=== PATIENT | female | born 1950 | race Caucasian/White ===

== ENCOUNTER → 2017-04-10 | Outpatient (CLI) | payer OTHER, MEDICAID ==
[~2017-04-10] MED LIST: ACTOS45 MG; ALLOPURINOL300 MG PO; AMOXICILLIN500 MG PO; ASPIRIN81 M1; FEROSUL325 MG PO; FERROUS SULFAT325 MG; FOLIC ACID1 MG PO; FORTE-PLUS-241 CAP PO; FUROSEMIDE40 MG; GLYBURIDE AND M; HYDROCODONE BIT1 T11 PO; IBU800 M1 PO; JANUVIA100 MG PO; KLOR-CON M2020 MEQ PO; LABETALOL HCL200 MG; LIDEX0.05% T; LISINOPRIL/HCTZ1 TA4; LISINOPRIL/HCTZ1 TA4 PO; LISINOPRIL20 MG; LISINOPRIL40 MG PO; MEDROL DOSEPAK4 MG PO; MULTIVITAMIN1 CTB; NORCO 325 MG-51 TAB PO; NORVASC10 MG; PERCOCET 325 MG1 TA2 PO; PLAVIX75 MG; PLAVIX75 MG PO; PREDNICOT20 MG PO; SIMVASTATIN40 MG; TRANDATE200 MG PO; Tessalon Perle100 MG PO; Transderm Nitr0.6 MG TD; VICODIN ES 7501 TAB PO; ZESTRIL,PRINIVI40 MG PO; ZESTRIL40 MG PO
== END | disposition home or self-care (01) ==
LOC: RAD 11:00
DX: I51.7 Cardiomegaly (principal); J06.9 Acute upper respiratory infection, unspecified; I10 Essential (primary) hypertension; E11.9 Type 2 diabetes mellitus without complications; I25.2 Old myocardial infarction; Z95.5 Presence of coronary angioplasty implant and graft; Z87.891 Personal history of nicotine dependence

== ENCOUNTER → 2018-06-12 | Outpatient (CLI) | payer OTHER, MEDICAID | END | disposition home or self-care (01) | LOC: MAMMO 05-29 14:20 | DX: Z12.31 Encounter for screening mammogram for malignant neoplasm of breast (principal) ==

== ENCOUNTER 2018-06-16 19:50 | Emergency (ER) | payer OTHER, MEDICAID ==
[~2018-06-16] VITALS: Ht 160 cm; Wt 80.3 kg
== END 2018-06-17 00:01 | disposition home or self-care (01) ==
LOC: ED 19:50
DX: M25.462 Effusion, left knee (principal); M79.605 Pain in left leg; M25.552 Pain in left hip; M79.662 Pain in left lower leg; Z79.899 Other long term (current) drug therapy; Z79.82 Long term (current) use of aspirin; W18.39XA Other fall on same level, initial encounter; Y93.89 Activity, other specified; Y92.89 Other specified places as the place of occurrence of the external cause; Y99.8 Other external cause status

== ENCOUNTER 2019-11-27 14:07 | Inpatient (IN) | payer MEDICARE, MEDICAID ==
[~2019-11-27] VITALS: Ht 157.4 cm; Wt 81.2 kg
[2019-11-27 14:10] VITALS: BP 1468/54
[2019-11-27] MEDS ORDERED: SIMVASTATIN40 MG PO (14:31)
[2019-11-27] MEDS ORDERED: ALLERGY RELIEF10 M2 PO (14:32)
[2019-11-27] MEDS ORDERED: CELEXA10 MG PO (14:32)
[2019-11-27] MEDS ORDERED: IRON325 M1 PO (14:33)
[2019-11-27] MEDS ORDERED: OS-CAL 500+D31 EACH PO (14:34)
[2019-11-27] MEDS ORDERED: METFORMIN HYD1000 MG PO (14:35)
[2019-11-27] MEDS ORDERED: GLUCOTROL5 MG PO (14:35)
[2019-11-27] MEDS ORDERED: NORMODYNE,TRAN200 MG PO (14:36)
[2019-11-27] MEDS ORDERED: FOSAMAX70 M1 PO (14:38)
--- NOTE | 2019-11-27 16:05 | NUR ---
PATIENT RESTING IN BED, DOES STATE SHE HAS PAIN WITH MOVEMENT. CALL LIGHT WITHIN REACH.
[2019-11-27 16:42] LABS: BASO % 0.7 % (0.0-1.0); EOS # 0.2 10*3/uL (0.0-0.4); EOS % 3.7 % (1.0-4.0); HEMATOCRIT 34.1 % (37.0-47.0); LYMPH # 0.8 10*3/uL (1.3-4.4); LYMPH % 14.4 % (27.0-41.0); MEAN CORPUSCULAR HGB 32.6 pg (27.0-31.0); MEAN CORPUSCULAR HGB CONC 32.6 g/dl (33.0-37.0); MEAN PLATELET VOLUME 10.3 fl (9.6-12.3); MONO # 0.3 10*3/uL (0.1-1.0); MONO % 5.5 % (3.0-9.0); NEUT # 4.3 10*3/uL (2.3-7.9); PLATELET COUNT AUTOMATED 175 10*3/uL (130-400); RED BLOOD COUNT 3.41 10*6/uL (4.10-5.10); RED CELL DISTRI WIDTH 14.2 % (0-14.5); WHITE BLOOD COUNT 5.7 10*3/uL (4.8-10.8)
[2019-11-27 16:59] LABS: ACT PARTIAL THROMBO TIME 26.2 SECONDS (20.0-32.1); INTERNATIONAL NORM RATIO 0.9 (2.0-3.5)
[2019-11-27 17:02] LABS: ALBUMIN 3.5 gm/dl (3.1-4.5); CREATININE 1.44 mg/dL (0.55-1.02); POTASSIUM 4.4 mmol/L (3.5-5.1); TOTAL PROTEIN 6.8 gm/dL (6.4-8.2)
--- NOTE | 2019-11-27 17:45 | NUR ---
A 69, admitted to , under the services of Dr. AMAN FIGUEROA,[facility] with a diagnosis of MULTIPLE RIB FRACTURES, FACIAL CONTUSION S/P FALL. Chief complaint is PT STATES [facility] AND STEPPED IN A POTHOLE OUT SIDE THE STORE THAT SHE WAS UNABLE TO SEE. STATES THIS CAUSED HER TO FALL FLAT ON HER FACE. PT HAS CONTUSION TO RT SIDE OF FACE AND PAIN TO RIBS. Patient arrived via stretcher from ER. Monitor applied. Initial assessment completed. Vital signs taken and recorded. See assessment for past medical history, medications and allergies. Patient and/or family oriented to unit. [facility]. MARJAN PEÑA
--- NOTE | 2019-11-27 18:10 | NUR ---
[facility] , under the services of DEBBIE Maurer MD with a diagnosis of FRACTURES. Chief complaint is PAIN WITH AMBULATION. Patient arrived via bed from ER. Monitor applied. Initial assessment completed. Vital signs taken and recorded. DEBBIE MAURER MD notified of admission to the unit. Orders received. See assessment for past medical history, medications and allergies. Patient and/or family oriented to unit. [facility] visitation policy reviewed. Clothing/patient valuable form completed. GARETT MARTIN
[2019-11-27 19:25] LABS: BACTERIA 2+; BILIRUBIN NEGATIVE (NEGATIVE); BLOOD NEGATIVE (NEGATIVE); CLARITY SL CLOUDY (CLEAR); COLOR YELLOW (YELLOW); EPITHELIAL CELLS 16-20; GLUCOSE NEGATIVE (NEGATIVE); HYALINE CAST 51-100; KETONE NEGATIVE (NEGATIVE); LEUKO ESTERASE 2+ (NEGATIVE); MUCOUS 1+; NITRITE NEGATIVE (NEGATIVE); UROBILINOGEN 0.2 E.U./dl (0.2-1.0); WBC 51-100 wbc/hpf (0-5)
[2019-11-27 20:00] VITALS: BP 210/62
--- NOTE | 2019-11-27 20:15 | NUR ---
dr johnston notified of pts elevated bp
--- NOTE | 2019-11-27 21:37 | NUR ---
PERCOCET GIVEN FOR RIB PAIN R/T BROKEN RIBS FROM FALL AT [facility].
[2019-11-27 21:53] VITALS: BP 222/62
--- NOTE | 2019-11-27 22:37 | NUR ---
PATIENT STATES THAT PERCOCET IS HELPING WITH PAIN.
[2019-11-27 23:15] VITALS: BP 188/62
[2019-11-28] VITALS: BP 196/52
[2019-11-28 00:40] VITALS: BP 178/62
--- NOTE | 2019-11-28 00:45 | NUR ---
BP OF CALLED TO NO NEW ORDERS
--- NOTE | 2019-11-28 03:30 | NUR ---
CALLED FOR PAIN RATED A 10 TO RIGHT SIDE. ORDERED TO GIVE 1 TIME DOSE PERCOCET
--- NOTE | 2019-11-28 04:25 | NUR ---
NORCO EFFECTIVE PATIENT RESTING COMFORTABLY IN ROOM ASLEEP
[2019-11-28 05:52] LABS: CREATININE 1.11 mg/dL (0.55-1.02); POTASSIUM 4.1 mmol/L (3.5-5.1)
[2019-11-28 08:00] VITALS: BP 137/48
--- NOTE | 2019-11-28 10:08 | NUR ---
Spice Grinder in to talk to patient. Patient states lives at home with . There are no steps in the home. Physician: thomas Pharmacy: [facility] [place] [facility]: none Patient's level of ADLs: INDEPENDENT Patient has working utilities: all working DME: none Follow-up physician's appointment after d/c: patient chooses to make own follow up appointment when discharge Does patient want to access PORTAL?: no Discharge plan discussed with patient, she states she lives at home with she is normally independent in adls and ambulation, but recently had a fall and fractured ribs. discussed with her a short term care home for rehab prior to returning home, she declined, also discussed VNA and she also declined this, she states she will return home and has family that will help her until she is able to do things herself. she stated her family will transport her home when discharged. JEANNA GUSTAFSON
[2019-11-28 12:00] VITALS: BP 154/62
--- NOTE | 2019-11-28 14:00 | NUR ---
PERCOCET GIVEN FOR C/O BACK AND RT SIDED RIB PAIN RATED 10/10 WHICH WORSENS WITH EXERTION. WILL MONITOR. CALL LIGHT IN REACH. IVF INFUSING WITH EASE.
--- NOTE | 2019-11-28 14:56 | NUR ---
PER PT, PERCOCET WAS EFFECTIVE FOR EARLIER COMPLAINTS.
[2019-11-28 16:00] VITALS: BP 154/52
--- NOTE | 2019-11-28 20:24 | NUR ---
IN TO ASSESS PATIENT AND CLEAN AND APPLY BACITRACIN AND BANDAGE TO SIDE OF FACE. PATIENT HAS NO COMPLAINTS AT THIS TIME EXCEPT BEING SORE IN THE RIGHT CHEST AREA. CALL LIGHT WITHIN REACH, WILL TAINA
--- NOTE | 2019-11-28 21:00 | NUR ---
ALSO REMINDED PATIENT AT THIS TIME TO USE INCENTIVE SPIROMETER. PATIENT VERBALIZED UNDERSTANDING
[2019-11-28 21:10] VITALS: BP 159/55
--- NOTE | 2019-11-28 21:30 | NUR ---
NIGHT TIME MEDICATIONS ADMINISTERED AT THIS TIME. PATIENT DENIES NEED FOR ANY PERCOCET AT THIS TIME WELL. ENCOURAGED PATIENT TO CALL AND LET THIS NURSE KNOW IF SHE NEEDS IT. CALL LIGHT LEFT WITHIN REACH, WILL MONITOR
--- NOTE | 2019-11-28 22:36 | NUR ---
24 HR chart check completed.
--- NOTE | 2019-11-28 23:11 | NUR ---
PRN PERCOCET GIVEN FOR PT COMPLAINTS OF RIB PAIN RATING IT 9/10. CALL LIGHT WITHIN REACH, WILL MONITOR
--- NOTE | 2019-11-29 00:06 | NUR ---
PATIENT STATES PERCOCET BEGINNING TO BE EFFECTIVE AT THIS TIME. BLOOD PRESSURE RECHECKED. BP 176/58. PATIENT STATES HER TOP NUMBER IS USUALLY 160'S. CALL LIGHT WITHIN REACH, WILL MONITOR
[2019-11-29 00:07] VITALS: BP 176/58
--- NOTE | 2019-11-29 01:47 | NUR ---
PRN DILAUDID GIVEN FOR PT COMPLAINTS OF PAIN IN THE RIGHT RIB RATING IT 8/10. CALL LIGHT WITHIN REACH, WILL MONITOR
--- NOTE | 2019-11-29 02:30 | NUR ---
PRN DILAUDID APPEARS EFFECTIVE PT SLEEPING
--- NOTE | 2019-11-29 05:09 | NUR ---
PATIENT REFUSED DAILY WEIGHT AT THIS TIME. STATED IT IS TOO PAINFUL TO LAY IN THE BED WITH HER BROKEN RIBS.
[2019-11-29 05:32] LABS: ALBUMIN 3.1 gm/dl (3.1-4.5); CREATININE 1.28 mg/dL (0.55-1.02)
[2019-11-29 08:00] VITALS: BP 168/58
--- NOTE | 2019-11-29 09:05 | NUR ---
PERCOCET GIVEN FOR BACK/RIB PAIN. RATED 10/10 PAIN. WORSENS WITH EXERTION. WILL MONITOR. CALL LIGHT IN REACH.
--- NOTE | 2019-11-29 09:50 | NUR ---
PERCOCET EFFECTIVE PER PATIENT. CALL LIGHT IN REACH.
--- NOTE | 2019-11-29 09:57 | NUR ---
IV SITE LOST AND PT REFUSING TO HAVE ANOTHER ONE PLACED. NOTIFIED. SAID OK, STOP FLUIDS AND ENCOURAGE PO FLUID INTAKE.
[2019-11-29 12:00] VITALS: BP 158/58
[2019-11-29 16:00] VITALS: BP 158/48
--- NOTE | 2019-11-29 16:43 | NUR ---
PERCOCET GIVEN FOR BACK/RIB PAIN. RATED 10/10 PAIN. WILL MONITOR. CALL LIGHT IN REACH.
--- NOTE | 2019-11-29 17:30 | NUR ---
PERCOCET EFFECTIVE PER PATIENT. CALL LIGHT IN REACH.
[2019-11-29 21:03] VITALS: BP 143/50
--- NOTE | 2019-11-29 23:22 | NUR ---
PRN PERCOCET GIVEN FOR PT COMPLAINTS OF PAIN IN THE RIBS RATING IT 8/10. CALL LIGHT WITHIN REACH, WILL MONITOR
--- NOTE | 2019-11-30 | NUR ---
PATIENT BLOOD PRESSURE 188/53, PATIENT STATED IT WAS BECAUSE SHE WAS IN PAIN AND THAT ITS NOT FAR FROM NORMAL. PATIENT DID NOT WANT IT RECHECKED AT THIS TIME. WILL RECHECK LATER. CALL LIGHT WITHIN REACH, WILL MONITOR
--- NOTE | 2019-11-30 00:20 | NUR ---
PRN MEDICATION APPEARS EFFECTIVE, PT SLEEPING
[2019-11-30 00:34] VITALS: BP 188/53
--- NOTE | 2019-11-30 02:30 | NUR ---
PATIENT CONTINUES TO SLEEP. NO DISTRESS NOTED.BREATHING IS EASY AND REGULAR. CALL LIGHT WITHIN REACH, WILL MONITOR
--- NOTE | 2019-11-30 05:12 | NUR ---
24 HR chart check completed.
--- NOTE | 2019-11-30 05:59 | NUR ---
PRN PERCOCET GIVEN FOR PT COMPLAINTS OF RIGHT SIDED RIB PAIN RATING IT 8/10. CALL LIGHT WITHIN REACH, WILL MONITOR
--- NOTE | 2019-11-30 06:50 | NUR ---
PRN PERCOCET EFFECTIVE PER PT
--- NOTE | 2019-11-30 07:02 | NUR ---
FRANKO DAVIES [id number] Please refer to the physician's history and physical for past medical history, comorbid conditions, and allergies. Diagnosis: MULTIPLE FRACTURES OF RIB INVOLVING FOUR OR MORE Raymond Score: 21,LOW OR NO RISK WOUND DESCRIPTIONS: Wound Number: 1 Location of the wound: right side of forehead Type of wound: laceration Thickness: Partial Size: 0.1cm x 0.6cm x 0.1cm Tunneling: none Undermining: none Sinus Tract: none Presence of Exudate: Serosanguineous Amount: Light Color: Red Odor: None Periwound Skin Appearance: Normal Wound edges: approximated Pain (associated with wound): none at time of assessment How does patient state this happened? pt stated this happened from a fall at [facility] prior to coming Wound Number: 2 Location of the wound: right side of nose Thickness: Partial Size: 0.4cm x 0.4cm x 0.1cm Tunneling: none Undermining: none Sinus Tract: none Presence of Exudate: none Amount: None Color: Red Odor: None Periwound Skin Appearance: Normal Wound edges: approximated Pain (associated with wound): none at time of assessment How does patient state this happened? pt states her face breaks out and this is what it is from Surface the patient is resting on: Isoflex SKIN PREVENTION RECOMMENDATION: 1. Pressure redistribution support surface as appropriate 2. Elevate heels 3. Remove boots/TEDS every shift and reapply 4. Head of bed 30 degrees as tolerated 5. Assess nutrition and hydration 6. Manage moisture 7. Avoid the use of containment devices while in bed 8. Use absorptive products on surfaces limit layers of linens on bed 9. Turn and reposition every 1-2 hours in bed and every 1 hour in chair as tolerated 10. Weight shifts every 15 minutes while up in chair 11. Offloading with pillows or device to keep heels elevated off bed 12. Monitor skin at least every shift 13. Inspect under medical devices twice a day WOUND TREATMENT RECOMMENDATIONS: Clarify current treatment: Cleanse right forehead and right side of nose with nss and apply sureprep around the wound bactrician to wound bed and cover with bandaid daily
--- NOTE | 2019-11-30 07:08 | NUR ---
Patient states she will care for this area upon discharge and doesn't wish to follow up in an outpatient setting at this time
[2019-11-30 07:31] LABS: CREATININE 1.43 mg/dL (0.55-1.02); POTASSIUM 4.5 mmol/L (3.5-5.1)
[2019-11-30 07:33] LABS: BASO % 0.3 % (0.0-1.0); EOS # 0.3 10*3/uL (0.0-0.4); EOS % 5.1 % (1.0-4.0); HEMATOCRIT 33.5 % (37.0-47.0); LYMPH # 1.2 10*3/uL (1.3-4.4); LYMPH % 20.4 % (27.0-41.0); MEAN CELL VOLUME 102.4 fl (81.0-99.0); MEAN CORPUSCULAR HGB 32.1 pg (27.0-31.0); MEAN CORPUSCULAR HGB CONC 31.3 g/dl (33.0-37.0); MEAN PLATELET VOLUME 10.6 fl (9.6-12.3); MONO # 0.5 10*3/uL (0.1-1.0); MONO % 7.8 % (3.0-9.0); NEUT % 66.2 % (47.0-73.0); PLATELET COUNT AUTOMATED 175 10*3/uL (130-400); RED BLOOD COUNT 3.27 10*6/uL (4.10-5.10); RED CELL DISTRI WIDTH 14.2 % (0-14.5)
[2019-11-30 08:00] VITALS: BP 159/52
--- NOTE | 2019-11-30 10:30 | NUR ---
case management visits with patient, she states she will return home when discharged and denies any home needs, case management will follow
--- NOTE | 2019-11-30 10:52 | NUR ---
Nutrition Support Note: Pt is 5'2" and 179lbs; 163% IBW. Dx of rib fractures and wounds to forehead and nose noted. Pt receiving low potassium diet with good intakes noted. Albumin 3.1. Continue encouraging pt to eat well at mealtimes and will begin providing night snack. Assist with meals if needed. Will monitor for further needs. Cecelia Santacruz [employer] Dietetic Student
[2019-11-30 12:00] VITALS: BP 149/45
--- NOTE | 2019-11-30 14:32 | NUR ---
Discharge instructions reviewed with patient/family. Patient receptive and verbalizes understanding. Follow-up care arranged. Written instructions given to patient/family. MAXIM URIBE
== END 2019-11-30 14:32 | disposition home or self-care (01) | DRG 185 ==
LOC: ED 14:07 → EDHOLD 17:23 → 4E 17:23
PROVIDERS: Emergency Medicine; ADMIT Internal Medicine
DX: S22.41XA Multiple fractures of ribs, right side, initial encounter for closed fracture (principal); S00.83XA Contusion of other part of head, initial encounter; S20.211A Contusion of right front wall of thorax, initial encounter; E78.00 Pure hypercholesterolemia, unspecified; I10 Essential (primary) hypertension; E11.9 Type 2 diabetes mellitus without complications; W18.30XA Fall on same level, unspecified, initial encounter; E78.5 Hyperlipidemia, unspecified; I25.10 Atherosclerotic heart disease of native coronary artery without angina pectoris; Z82.49 Family history of ischemic heart disease and other diseases of the circulatory system; Z82.3 Family history of stroke; Y93.89 Activity, other specified; Y92.512 Supermarket, store or market as the place of occurrence of the external cause; Y99.8 Other external cause status; Z79.82 Long term (current) use of aspirin; Z95.5 Presence of coronary angioplasty implant and graft; N18.9 Chronic kidney disease, unspecified; R79.89 Other specified abnormal findings of blood chemistry

== ENCOUNTER 2019-12-11 11:16 | Inpatient (IN) | payer MEDICARE, MEDICAID ==
[~2019-12-11] VITALS: Ht 157.5 cm; Wt 84.1 kg
[~2019-12-11 11:16] MED LIST changes: +ALLERGY RELIEF10 M2 PO; +CELEXA10 MG PO; +FOSAMAX70 M1 PO; +GLUCOTROL5 MG PO; +IRON325 M1 PO; +METFORMIN HYD1000 MG PO; +NORMODYNE,TRAN200 MG PO; +OS-CAL 500+D31 EACH PO; +SIMVASTATIN40 MG PO
[2019-12-11 11:22] VITALS: BP 181/80
[2019-12-11 12:47] LABS: BASO % 0.4 % (0.0-1.0); EOS # 0.1 10*3/uL (0.0-0.4); EOS % 1.6 % (1.0-4.0); HEMATOCRIT 29.2 % (37.0-47.0); LYMPH # 0.6 10*3/uL (1.3-4.4); LYMPH % 8.8 % (27.0-41.0); MEAN CELL VOLUME 99.3 fl (81.0-99.0); MEAN CORPUSCULAR HGB 32.3 pg (27.0-31.0); MEAN CORPUSCULAR HGB CONC 32.5 g/dl (33.0-37.0); MEAN PLATELET VOLUME 10.1 fl (9.6-12.3); MONO # 0.4 10*3/uL (0.1-1.0); MONO % 5.8 % (3.0-9.0); NEUT # 5.9 10*3/uL (2.3-7.9); PLATELET COUNT AUTOMATED 184 10*3/uL (130-400); RED BLOOD COUNT 2.94 10*6/uL (4.10-5.10); WHITE BLOOD COUNT 7.1 10*3/uL (4.8-10.8)
[2019-12-11 13:04] LABS: ALKALINE PHOSPHATASE 103 U/L (45-117); BUN 16 mg/dl (7-24); CHLORIDE 101 mmol/L (98-107); CREATININE 0.87 mg/dL (0.55-1.02); POTASSIUM 3.9 mmol/L (3.5-5.1); SGOT/AST 17 IU/L (3-35); SGPT/ALT 17 U/L (12-78); SODIUM 137 mmol/L (136-145); TOTAL PROTEIN 6.4 gm/dL (6.4-8.2); TROPONIN I 0.017 ng/ml (<0.045)
[2019-12-11 14:32] VITALS: BP 158/76
[2019-12-11 16:17] VITALS: BP 158/76
[2019-12-11 17:50] VITALS: BP 160/81
[2019-12-11] MEDS ORDERED: CLARITIN10 MG PO (18:28)
[2019-12-11] MEDS ORDERED: LASIX40 MG PO (18:28)
[2019-12-11] MEDS ORDERED: ZESTORETIC 20-1 EACH PO (18:34)
[2019-12-12] VITALS: BP 155/59
[2019-12-12 06:29] LABS: BASO % 0.3 % (0.0-1.0); EOS # 0.2 10*3/uL (0.0-0.4); EOS % 2.5 % (1.0-4.0); HEMATOCRIT 30.2 % (37.0-47.0); LYMPH # 0.7 10*3/uL (1.3-4.4); LYMPH % 11.5 % (27.0-41.0); MEAN CORPUSCULAR HGB 31.5 pg (27.0-31.0); MEAN CORPUSCULAR HGB CONC 31.5 g/dl (33.0-37.0); MEAN PLATELET VOLUME 10.4 fl (9.6-12.3); MONO # 0.5 10*3/uL (0.1-1.0); MONO % 8.6 % (3.0-9.0); NEUT # 4.6 10*3/uL (2.3-7.9); NEUT % 76.8 % (47.0-73.0); PLATELET COUNT AUTOMATED 199 10*3/uL (130-400); RED BLOOD COUNT 3.02 10*6/uL (4.10-5.10); WHITE BLOOD COUNT 5.9 10*3/uL (4.8-10.8)
[2019-12-12 06:46] LABS: ALKALINE PHOSPHATASE 103 U/L (45-117); BUN 13 mg/dl (7-24); CHLORIDE 101 mmol/L (98-107); CREATININE 0.83 mg/dL (0.55-1.02); POTASSIUM 3.6 mmol/L (3.5-5.1); SGOT/AST 14 IU/L (3-35); SGPT/ALT 16 U/L (12-78); SODIUM 138 mmol/L (136-145); TOTAL PROTEIN 6.7 gm/dL (6.4-8.2)
[2019-12-12 08:00] VITALS: BP 128/70
[2019-12-12 12:00] VITALS: BP 132/68
[2019-12-12 16:00] VITALS: BP 156/64
[2019-12-12 20:00] VITALS: BP 157/57
[2019-12-13 06:37] LABS: BUN 19 mg/dl (7-24); CHLORIDE 103 mmol/L (98-107); CREATININE 0.87 mg/dL (0.55-1.02); POTASSIUM 3.5 mmol/L (3.5-5.1); SODIUM 141 mmol/L (136-145)
[2019-12-13 12:00] VITALS: BP 157/69
[2019-12-13 16:00] VITALS: BP 161/59
[2019-12-13 20:34] VITALS: BP 180/59
[2019-12-14] VITALS: BP 160/84; BP 181/55
[2019-12-14 08:00] VITALS: BP 158/57
[2019-12-14 12:00] VITALS: BP 150/59
[2019-12-14 16:00] VITALS: BP 183/90
[2019-12-14 20:00] VITALS: BP 187/60
[2019-12-15 06:15] LABS: BASO % 0.2 % (0.0-1.0); EOS # 0.3 10*3/uL (0.0-0.4); EOS % 7.2 % (1.0-4.0); LYMPH % 23.1 % (27.0-41.0); MONO # 0.4 10*3/uL (0.1-1.0); MONO % 8.1 % (3.0-9.0); NEUT # 2.6 10*3/uL (2.3-7.9); NEUT % 61.2 % (47.0-73.0); PLATELET COUNT AUTOMATED 202 10*3/uL (130-400); RED CELL DISTRI WIDTH 13.7 % (0-14.5); WHITE BLOOD COUNT 4.3 10*3/uL (4.8-10.8)
[2019-12-15 06:42] LABS: CREATININE 0.84 mg/dL (0.55-1.02)
[2019-12-15 08:00] VITALS: BP 160/90
[2019-12-15 12:00] VITALS: BP 160/51
[2019-12-15] MEDS ORDERED: NATURE'S BLEND F1 MG PO (15:09)
[2019-12-15] MEDS ORDERED: ADVAIR HFA 45-212 GM INH (15:09)
[2019-12-15] MEDS ORDERED: THERA TABLET400 MCG PO (15:09)
[2019-12-15] MEDS ORDERED: VENTOLIN 02.5 MG/3 M INH (15:09)
[2019-12-15] MEDS ORDERED: FUROSEMIDE10 MG/1 M1 PO (15:09)
[2019-12-15] MEDS ORDERED: LASIX40 MG PO (15:26)
== END 2019-12-15 17:05 | disposition home or self-care (01) | DRG 184 ==
LOC: ED 11:16 → EDHOLD 16:41 → 5E 17:31
PROVIDERS: Internal Medicine; ADMIT Internal Medicine
DX: S22.41XA Multiple fractures of ribs, right side, initial encounter for closed fracture (principal); I50.30 Unspecified diastolic (congestive) heart failure; I11.0 Hypertensive heart disease with heart failure; D53.9 Nutritional anemia, unspecified; W18.30XA Fall on same level, unspecified, initial encounter; D72.819 Decreased white blood cell count, unspecified; E13.69 Other specified diabetes mellitus with other specified complication; I25.10 Atherosclerotic heart disease of native coronary artery without angina pectoris; Y93.89 Activity, other specified; Y92.89 Other specified places as the place of occurrence of the external cause; Y99.8 Other external cause status; Z79.82 Long term (current) use of aspirin; Z79.899 Other long term (current) drug therapy; Z95.5 Presence of coronary angioplasty implant and graft; Z98.51 Tubal ligation status; Z82.3 Family history of stroke; Z82.49 Family history of ischemic heart disease and other diseases of the circulatory system

== ENCOUNTER 2020-09-20 06:16 | Inpatient (IN) | payer MEDICARE, MEDICAID ==
[~2020-09-20] VITALS: Ht 157 cm; Wt 84.2 kg
[2020-09-20] VITALS (15 sets, daily range): BP systolic 143–256; BP diastolic 46–90
[~2020-09-20 06:16] MED LIST changes: +ADVAIR HFA 45-212 GM INH; +CLARITIN10 MG PO; +FUROSEMIDE10 MG/1 M1 PO; +LASIX40 MG PO; +NATURE'S BLEND F1 MG PO; +THERA TABLET400 MCG PO; +VENTOLIN 02.5 MG/3 M INH; +ZESTORETIC 20-1 EACH PO
[2020-09-20 06:56] LABS: BASO # 0.1 10*3/uL (0.0-0.1); BASO % 0.5 % (0.0-1.0); EOS # 0.4 10*3/uL (0.0-0.4); EOS % 3.4 % (1.0-4.0); HEMATOCRIT 38.4 % (37.0-47.0); LYMPH # 1.6 10*3/uL (1.3-4.4); LYMPH % 15.2 % (27.0-41.0); MEAN CELL VOLUME 102.9 fl (81.0-99.0); MEAN CORPUSCULAR HGB 32.7 pg (27.0-31.0); MEAN CORPUSCULAR HGB CONC 31.8 g/dl (33.0-37.0); MEAN PLATELET VOLUME 10.7 fl (9.6-12.3); MONO # 0.6 10*3/uL (0.1-1.0); MONO % 5.5 % (3.0-9.0); PLATELET COUNT AUTOMATED 192 10*3/uL (130-400); RED BLOOD COUNT 3.73 10*6/uL (4.10-5.10); WHITE BLOOD COUNT 10.7 10*3/uL (4.8-10.8)
[2020-09-20 07:10] LABS: ALBUMIN 3.5 gm/dl (3.1-4.5); ALKALINE PHOSPHATASE 78 U/L (45-117); BUN 22 mg/dl (7-24); CHLORIDE 105 mmol/L (98-107); CREATININE 1.07 mg/dL (0.55-1.02); POTASSIUM 4.7 mmol/L (3.5-5.1); SGOT/AST 21 IU/L (3-35); SGPT/ALT 24 U/L (12-78); SODIUM 138 mmol/L (136-145)
[2020-09-20 07:11] LABS: ABG BASE EXCESS 0.1 mmol/L (-2.0-2.0); ARTERIAL BLOOD GAS PO2 139.7 (80-90)
[2020-09-20 07:13] LABS: ARTERIAL BLOOD GAS PH 7.131 (7.35-7.45)
[2020-09-20 08:29] LABS: BILIRUBIN Negative (Negative); BLOOD Trace-Lysed (Negative); CLARITY Cloudy (Clear); COLOR Yellow (Yellow); GLUCOSE Negative (Negative); KETONE Negative (Negative); LEUKO ESTERASE Negative (Negative); NITRITE Negative (Negative); SPECIFIC GRAVITY 1.015 (1.001-1.030)
[2020-09-20 08:34] LABS: RBC 0-2 rbc/hpf (0-2)
[2020-09-20 08:35] LABS: BACTERIA 2+; EPITHELIAL CELLS 0-2
[2020-09-20 11:20] LABS: ABG BASE EXCESS 3.7 mmol/L (-2.0-2.0); ARTERIAL BLOOD GAS PH 7.342 (7.35-7.45); ARTERIAL BLOOD GAS PO2 155.7 (80-90)
[2020-09-20 14:33] LABS: ABG BASE EXCESS 1.5 mmol/L (-2.0-2.0); ARTERIAL BLOOD GAS PH 7.365 (7.35-7.45); ARTERIAL BLOOD GAS PO2 83.3 (80-90)
[2020-09-20 18:57] LABS: URINE AMPHETAMINES < 1000 (1000ng/ml); URINE BARBITURATES < 200 (200ng/ml); URINE BENZODIAZEPINES > 200 (200ng/ml); URINE CANNABINOIDS (THC) < 50 (50ng/ml); URINE COCAINE < 300 (300ng/ml); URINE METHADONE < 300 (300ng/ml); URINE OPIATES > 300 (300ng/ml)
[2020-09-20 18:59] LABS: URINE PHENCYCLIDINE < 25 (25ng/ml)
[2020-09-21] VITALS (68 sets, daily range): BP systolic 92–187; BP diastolic 43–79
[2020-09-21 06:31] LABS: BASO % 0.2 % (0.0-1.0); EOS % 0.1 % (1.0-4.0); HEMATOCRIT 34.8 % (37.0-47.0); LYMPH # 0.7 10*3/uL (1.3-4.4); LYMPH % 5.8 % (27.0-41.0); MEAN CELL VOLUME 100.3 fl (81.0-99.0); MEAN CORPUSCULAR HGB CONC 31.9 g/dl (33.0-37.0); MEAN PLATELET VOLUME 11.1 fl (9.6-12.3); MONO # 0.7 10*3/uL (0.1-1.0); MONO % 6.2 % (3.0-9.0); NEUT # 9.9 10*3/uL (2.3-7.9); NEUT % 87.3 % (47.0-73.0); PLATELET COUNT AUTOMATED 152 10*3/uL (130-400); RED BLOOD COUNT 3.47 10*6/uL (4.10-5.10); WHITE BLOOD COUNT 11.3 10*3/uL (4.8-10.8)
[2020-09-21 06:48] LABS: CREATININE 1.26 mg/dL (0.55-1.02); FREE T4 1.26 ng/dl (0.76-1.46); TOTAL PROTEIN 6.2 gm/dL (6.4-8.2)
[2020-09-21 06:52] LABS: POTASSIUM 3.6 mmol/L (3.5-5.1); THYROID STIM HORMONE (HS) 0.926 uIU/ml (0.358-4.75)
[2020-09-21 06:59] LABS: VITAMIN D, 25-HYDROXY 49.9 ng/mL (30-100)
[2020-09-21 07:36] LABS: ABG BASE EXCESS 3.3 mmol/L (-2.0-2.0); ARTERIAL BLOOD GAS PH 7.416 (7.35-7.45)
[2020-09-21] MEDS ORDERED: PIOGLITAZONE HC45 MG PO (11:57)
[2020-09-21] MEDS ORDERED: CLOPIDOGREL75 MG PO (12:01)
[2020-09-21] MEDS ORDERED: CITALOPRAM10 MG PO (12:01)
[2020-09-21] MEDS ORDERED: ZESTRIL40 MG PO (12:02)
[2020-09-21 12:08] LABS: ABG BASE EXCESS 7.9 mmol/L (-2.0-2.0); ARTERIAL BLOOD GAS PH 7.455 (7.35-7.45); ARTERIAL BLOOD GAS PO2 73.4 (80-90)
[2020-09-22] VITALS (34 sets, daily range): BP systolic 114–189; BP diastolic 41–83
[2020-09-22 06:22] LABS: BASO % 0.1 % (0.0-1.0); EOS # 0.1 10*3/uL (0.0-0.4); EOS % 1.4 % (1.0-4.0); LYMPH # 0.6 10*3/uL (1.3-4.4); LYMPH % 7.4 % (27.0-41.0); MEAN CELL VOLUME 101.9 fl (81.0-99.0); MEAN CORPUSCULAR HGB 32.2 pg (27.0-31.0); MEAN CORPUSCULAR HGB CONC 31.6 g/dl (33.0-37.0); MONO # 0.5 10*3/uL (0.1-1.0); MONO % 6.1 % (3.0-9.0); NEUT # 7.1 10*3/uL (2.3-7.9); NEUT % 84.6 % (47.0-73.0); PLATELET COUNT AUTOMATED 134 10*3/uL (130-400); RED BLOOD COUNT 3.14 10*6/uL (4.10-5.10); RED CELL DISTRI WIDTH 14.4 % (0-14.5); WHITE BLOOD COUNT 8.4 10*3/uL (4.8-10.8)
[2020-09-22 06:37] LABS: CREATININE 1.16 mg/dL (0.55-1.02); POTASSIUM 3.6 mmol/L (3.5-5.1)
[2020-09-22 09:13] LABS: ARTERIAL BLOOD GAS PH 7.382 (7.35-7.45); ARTERIAL BLOOD GAS PO2 103.8 (80-90)
[2020-09-22 12:50] LABS: ABG BASE EXCESS 5.8 mmol/L (-2.0-2.0); ARTERIAL BLOOD GAS PH 7.406 (7.35-7.45); ARTERIAL BLOOD GAS PO2 77.4 (80-90)
[2020-09-22 15:55] LABS: ABG BASE EXCESS 7.2 mmol/L (-2.0-2.0); ARTERIAL BLOOD GAS PH 7.432 (7.35-7.45); ARTERIAL BLOOD GAS PO2 95.5 (80-90)
[2020-09-23] VITALS (37 sets, daily range): BP systolic 144–201; BP diastolic 42–78
[2020-09-23 06:13] LABS: BUN 24 mg/dl (7-24); CHLORIDE 100 mmol/L (98-107); CREATININE 0.99 mg/dL (0.55-1.02); POTASSIUM 3.7 mmol/L (3.5-5.1); SODIUM 138 mmol/L (136-145)
[2020-09-23 06:15] LABS: BASO % 0.4 % (0.0-1.0); EOS # 0.3 10*3/uL (0.0-0.4); EOS % 4.9 % (1.0-4.0); HEMATOCRIT 32.5 % (37.0-47.0); LYMPH # 0.9 10*3/uL (1.3-4.4); LYMPH % 12.4 % (27.0-41.0); MEAN CELL VOLUME 102.8 fl (81.0-99.0); MEAN CORPUSCULAR HGB CONC 31.1 g/dl (33.0-37.0); MEAN PLATELET VOLUME 11.6 fl (9.6-12.3); MONO # 0.5 10*3/uL (0.1-1.0); MONO % 7.2 % (3.0-9.0); NEUT # 5.2 10*3/uL (2.3-7.9); NEUT % 74.7 % (47.0-73.0); PLATELET COUNT AUTOMATED 135 10*3/uL (130-400); RED BLOOD COUNT 3.16 10*6/uL (4.10-5.10); RED CELL DISTRI WIDTH 13.6 % (0-14.5); WHITE BLOOD COUNT 6.9 10*3/uL (4.8-10.8)
[2020-09-23 08:13] LABS: ABG BASE EXCESS 7.5 mmol/L (-2.0-2.0); ARTERIAL BLOOD GAS PH 7.434 (7.35-7.45); ARTERIAL BLOOD GAS PO2 64.7 (80-90)
[2020-09-24] VITALS (94 sets, daily range): BP systolic 112–209; BP diastolic 40–104
[2020-09-24 05:16] LABS: BUN 22 mg/dl (7-24); CHLORIDE 99 mmol/L (98-107); SODIUM 137 mmol/L (136-145)
[2020-09-24 06:08] LABS: BASO % 0.4 % (0.0-1.0); EOS # 0.3 10*3/uL (0.0-0.4); EOS % 5.7 % (1.0-4.0); HEMATOCRIT 28.5 % (37.0-47.0); LYMPH # 0.7 10*3/uL (1.3-4.4); LYMPH % 13.7 % (27.0-41.0); MEAN CELL VOLUME 101.4 fl (81.0-99.0); MEAN CORPUSCULAR HGB 32.4 pg (27.0-31.0); MEAN CORPUSCULAR HGB CONC 31.9 g/dl (33.0-37.0); MEAN PLATELET VOLUME 11.3 fl (9.6-12.3); MONO # 0.5 10*3/uL (0.1-1.0); MONO % 9.3 % (3.0-9.0); NEUT # 3.7 10*3/uL (2.3-7.9); NEUT % 70.5 % (47.0-73.0); PLATELET COUNT AUTOMATED 140 10*3/uL (130-400); RED BLOOD COUNT 2.81 10*6/uL (4.10-5.10); RED CELL DISTRI WIDTH 13.2 % (0-14.5); WHITE BLOOD COUNT 5.3 10*3/uL (4.8-10.8)
[2020-09-25] VITALS (93 sets, daily range): BP systolic 78–1773; BP diastolic 39–103
[2020-09-25 15:43] LABS: BUN 22 mg/dl (7-24); CHLORIDE 99 mmol/L (98-107); CREATININE 0.94 mg/dL (0.55-1.02); POTASSIUM 3.9 mmol/L (3.5-5.1); SODIUM 134 mmol/L (136-145)
[2020-09-26] VITALS (18 sets, daily range): BP systolic 120–198; BP diastolic 39–102
[2020-09-26 08:26] LABS: BUN 17 mg/dl (7-24); CHLORIDE 100 mmol/L (98-107); CREATININE 0.83 mg/dL (0.55-1.02); POTASSIUM 4.1 mmol/L (3.5-5.1); SODIUM 136 mmol/L (136-145)
[2020-09-27] VITALS: BP 147/52
[2020-09-27 04:00] VITALS: BP 166/43
[2020-09-27 08:00] VITALS: BP 129/69
[2020-09-27 12:00] VITALS: BP 149/55
[2020-09-27 16:00] VITALS: BP 104/45
[2020-09-27 20:00] VITALS: BP 161/49
[2020-09-28] VITALS: BP 189/58
[2020-09-28 06:06] LABS: BUN 18 mg/dl (7-24); CHLORIDE 101 mmol/L (98-107); CREATININE 0.69 mg/dL (0.55-1.02); POTASSIUM 3.4 mmol/L (3.5-5.1); SODIUM 140 mmol/L (136-145)
[2020-09-28 06:22] LABS: BASO % 0.5 % (0.0-1.0); EOS # 0.2 10*3/uL (0.0-0.4); EOS % 4.6 % (1.0-4.0); HEMATOCRIT 31.3 % (37.0-47.0); LYMPH # 0.8 10*3/uL (1.3-4.4); LYMPH % 18.5 % (27.0-41.0); MEAN CELL VOLUME 98.1 fl (81.0-99.0); MEAN CORPUSCULAR HGB CONC 32.6 g/dl (33.0-37.0); MEAN PLATELET VOLUME 10.8 fl (9.6-12.3); MONO # 0.4 10*3/uL (0.1-1.0); MONO % 9.7 % (3.0-9.0); NEUT # 2.9 10*3/uL (2.3-7.9); PLATELET COUNT AUTOMATED 215 10*3/uL (130-400); RED BLOOD COUNT 3.19 10*6/uL (4.10-5.10); RED CELL DISTRI WIDTH 12.8 % (0-14.5); WHITE BLOOD COUNT 4.3 10*3/uL (4.8-10.8)
[2020-09-28 08:00] VITALS: BP 164/82
[2020-09-28 12:00] VITALS: BP 170/64
[2020-09-28 16:00] VITALS: BP 128/70
[2020-09-28] MEDS ORDERED: CARVEDILOL25 MG PO (16:42)
[2020-09-28] MEDS ORDERED: LIPITOR20 MG PO (16:42)
[2020-09-28] MEDS ORDERED: AMLODIPINE BESY10 MG PO (16:42)
[2020-09-28] MEDS ORDERED: APRESOLINE25 MG PO (16:42)
[2020-10-04 08:14] LABS: NORMETANEPHRINE, PLASMA 87.7 pg/mL (0.0-191.8)
== END 2020-09-28 18:21 | disposition home health service (06) | DRG 208 ==
LOC: ED 06:16 → ICCU 07:56 → EDHOLD 07:56 → ICCU 15:12 → 4E 09-28 06:52
PROVIDERS: Emergency Medicine; Hospitalist; Internal Medicine; Internal Medicine Critical Care Medicine; Internal Medicine Nephrology; Social Worker Clinical; ADMIT Internal Medicine; ATTEND Internal Medicine
PROC: 5A1945Z Respiratory Ventilation, 24-96 Consecutive Hours (ICD-10-PCS; principal; 2020-09-20)
PROC: 0BH18EZ Insertion of Endotracheal Airway into Trachea, Via Natural or Artificial Opening Endoscopic (ICD-10-PCS; 2020-09-20)
PROC: 5A09357 Assistance with Respiratory Ventilation, Less than 24 Consecutive Hours, Continuous Positive Airway Pressure (ICD-10-PCS; 2020-09-23)
PROC: 5A09357 Assistance with Respiratory Ventilation, Less than 24 Consecutive Hours, Continuous Positive Airway Pressure (ICD-10-PCS; 2020-09-24)
PROC: 5A09357 Assistance with Respiratory Ventilation, Less than 24 Consecutive Hours, Continuous Positive Airway Pressure (ICD-10-PCS; 2020-09-25)
DX: J96.01 Acute respiratory failure with hypoxia (principal); N17.0 Acute kidney failure with tubular necrosis; I50.33 Acute on chronic diastolic (congestive) heart failure; J18.9 Pneumonia, unspecified organism; I16.1 Hypertensive emergency; I13.0 Hypertensive heart and chronic kidney disease with heart failure and stage 1 through stage 4 chronic kidney disease, or unspecified chronic kidney disease; J96.02 Acute respiratory failure with hypercapnia; E11.65 Type 2 diabetes mellitus with hyperglycemia; E78.5 Hyperlipidemia, unspecified; R45.1 Restlessness and agitation; I25.10 Atherosclerotic heart disease of native coronary artery without angina pectoris; E66.9 Obesity, unspecified; D75.89 Other specified diseases of blood and blood-forming organs; E87.6 Hypokalemia; T50.2X5A Adverse effect of carbonic-anhydrase inhibitors, benzothiadiazides and other diuretics, initial encounter; I35.2 Nonrheumatic aortic (valve) stenosis with insufficiency; D64.9 Anemia, unspecified; E11.22 Type 2 diabetes mellitus with diabetic chronic kidney disease; N18.9 Chronic kidney disease, unspecified; Y92.238 Other place in hospital as the place of occurrence of the external cause; R41.82 Altered mental status, unspecified; Z79.82 Long term (current) use of aspirin; Z79.899 Other long term (current) drug therapy; Z79.84 Long term (current) use of oral hypoglycemic drugs; Z95.5 Presence of coronary angioplasty implant and graft; Z98.51 Tubal ligation status; Z82.3 Family history of stroke; Z82.49 Family history of ischemic heart disease and other diseases of the circulatory system; Z68.33 Body mass index [BMI] 33.0-33.9, adult

== ENCOUNTER → 2021-05-24 | Day surgery (SDC) | payer MEDICARE, MEDICAID ==
[~2021-05-24] VITALS: Ht 152.4 cm; Wt 70.3 kg
[~2021-05-24] MED LIST changes: +AMLODIPINE BESY10 MG PO; +APRESOLINE25 MG PO; +CARVEDILOL25 MG PO; +CITALOPRAM10 MG PO; +CLOPIDOGREL75 MG PO; +JARDIANCE10 MG PO; +LIPITOR20 MG PO; +OCUFLOX 0.3% 5 M5 ML OPH; +PIOGLITAZONE HC45 MG PO; +PRED FORTE5 ML OP
[2021-05-24 07:20] VITALS: BP 159/62
[2021-05-24 08:38] VITALS: BP 167/65
[2021-05-24 08:53] VITALS: BP 138/51
[2021-05-24 09:05] VITALS: BP 159/55
== END | disposition home or self-care (01) ==
LOC: SDC 05-19 09:30
PROVIDERS: ATTEND Ophthalmology
DX: E11.36 Type 2 diabetes mellitus with diabetic cataract (principal); H25.812 Combined forms of age-related cataract, left eye; I11.0 Hypertensive heart disease with heart failure; I50.9 Heart failure, unspecified; I25.2 Old myocardial infarction; E78.00 Pure hypercholesterolemia, unspecified; F32.9 Major depressive disorder, single episode, unspecified; Z87.891 Personal history of nicotine dependence; Z79.899 Other long term (current) drug therapy; Z20.822 Contact with and (suspected) exposure to COVID-19

== ENCOUNTER 2021-07-12 12:44 | Emergency (ER) | payer MEDICARE, MEDICAID ==
[~2021-07-12] VITALS: Wt 72.6 kg
[2021-07-12 14:12] LABS: BASO % 0.3 % (0.0-1.0); EOS % 0.2 % (1.0-4.0); HEMATOCRIT 35.2 % (37.0-47.0); LYMPH # 0.7 10*3/uL (1.3-4.4); LYMPH % 5.4 % (27.0-41.0); MEAN CELL VOLUME 93.6 fl (81.0-99.0); MEAN CORPUSCULAR HGB 31.1 pg (27.0-31.0); MEAN CORPUSCULAR HGB CONC 33.2 g/dl (33.0-37.0); MEAN PLATELET VOLUME 9.8 fl (9.6-12.3); MONO # 0.6 10*3/uL (0.1-1.0); MONO % 4.7 % (3.0-9.0); NEUT # 11.4 10*3/uL (2.3-7.9); NEUT % 88.9 % (47.0-73.0); PLATELET COUNT AUTOMATED 194 10*3/uL (130-400); RED BLOOD COUNT 3.76 10*6/uL (4.10-5.10); RED CELL DISTRI WIDTH 12.6 % (0-14.5); WHITE BLOOD COUNT 12.9 10*3/uL (4.8-10.8)
[2021-07-12 14:26] LABS: BILIRUBIN Negative (Negative); BLOOD Negative (Negative); CLARITY Clear (Clear); COLOR Yellow (Yellow); GLUCOSE 3+ (Negative); KETONE Negative (Negative); LEUKO ESTERASE Negative (Negative); NITRITE Negative (Negative); UROBILINOGEN 0.2 E.U./dl (0.0-1.0)
[2021-07-12 14:32] LABS: BACTERIA 2+; HYALINE CAST 0-2
[2021-07-12 14:34] LABS: ALKALINE PHOSPHATASE 99 U/L (45-117); BUN 20 mg/dl (7-24); CHLORIDE 102 mmol/L (98-107); CREATININE 1.07 mg/dL (0.55-1.02); POTASSIUM 3.5 mmol/L (3.5-5.1); SGOT/AST 30 IU/L (3-35); SGPT/ALT 40 U/L (12-78); SODIUM 136 mmol/L (136-145); TOTAL PROTEIN 6.3 gm/dL (6.4-8.2)
[2021-07-12] MEDS ORDERED: ZOFRAN4 MG PO (15:46)
== END 2021-07-12 15:59 | disposition home or self-care (01) ==
LOC: ED 12:44
PROVIDERS: Emergency Medicine
DX: R11.2 Nausea with vomiting, unspecified (principal); R10.9 Unspecified abdominal pain; Z88.8 Allergy status to other drugs, medicaments and biological substances; Z79.899 Other long term (current) drug therapy; Z79.82 Long term (current) use of aspirin; Z98.51 Tubal ligation status; Z98.890 Other specified postprocedural states

== ENCOUNTER → 2021-07-21 | Outpatient (CLI) | payer MEDICARE, MEDICAID ==
[~2021-07-21] MED LIST changes: +ZOFRAN4 MG PO
== END | disposition home or self-care (01) ==
LOC: US 08:58
PROVIDERS: ATTEND Internal Medicine Nephrology
DX: I65.23 Occlusion and stenosis of bilateral carotid arteries (principal)

== ENCOUNTER 2022-01-18 21:00 | Emergency (ER) | payer MEDICARE, MEDICAID ==
[~2022-01-18] VITALS: Ht 157.4 cm; Wt 73.9 kg
== END 2022-01-18 22:23 | disposition short-term general hospital (02) ==
LOC: ED 21:00
DX: S01.01XA Laceration without foreign body of scalp, initial encounter (principal); S90.32XA Contusion of left foot, initial encounter; S80.02XA Contusion of left knee, initial encounter; M25.512 Pain in left shoulder; M25.562 Pain in left knee; M54.2 Cervicalgia; I25.10 Atherosclerotic heart disease of native coronary artery without angina pectoris; E11.9 Type 2 diabetes mellitus without complications; E78.5 Hyperlipidemia, unspecified; I13.0 Hypertensive heart and chronic kidney disease with heart failure and stage 1 through stage 4 chronic kidney disease, or unspecified chronic kidney disease; N18.30 Chronic kidney disease, stage 3 unspecified; I50.9 Heart failure, unspecified; E66.9 Obesity, unspecified; Z88.8 Allergy status to other drugs, medicaments and biological substances; Z79.899 Other long term (current) drug therapy; Z79.82 Long term (current) use of aspirin; Z79.2 Long term (current) use of antibiotics; Z68.30 Body mass index [BMI] 30.0-30.9, adult; Z95.5 Presence of coronary angioplasty implant and graft; Z98.61 Coronary angioplasty status; W10.8XXA Fall (on) (from) other stairs and steps, initial encounter; Y93.89 Activity, other specified; Y92.89 Other specified places as the place of occurrence of the external cause; Y99.8 Other external cause status

== ENCOUNTER → 2022-02-07 | Outpatient (CLI) | payer MEDICARE, MEDICAID | END | disposition home or self-care (01) | LOC: ORTHO 02:34 | PROVIDERS: ATTEND Orthopaedic Surgery | DX: S43.022A Posterior subluxation of left humerus, initial encounter (principal); X58.XXXA Exposure to other specified factors, initial encounter; Y93.89 Activity, other specified; Y92.89 Other specified places as the place of occurrence of the external cause; Y99.8 Other external cause status ==

== ENCOUNTER → 2022-02-23 | Outpatient (CLI) | payer MEDICARE, MEDICAID | LOC: RAD 09:00 | PROVIDERS: ATTEND Orthopaedic Surgery | DX: M85.88 Other specified disorders of bone density and structure, other site (principal); M80.00XA Age-related osteoporosis with current pathological fracture, unspecified site, initial encounter for fracture ==

== ENCOUNTER → 2022-04-18 | Outpatient (CLI) | payer MEDICARE, MEDICAID | END | disposition home or self-care (01) | LOC: US 13:00 | PROVIDERS: ATTEND Internal Medicine Nephrology | DX: M79.602 Pain in left arm (principal) ==

== ENCOUNTER → 2022-04-30 | Outpatient (CLI) | payer MEDICARE, MEDICAID | END | disposition home or self-care (01) | LOC: MAMMO 01:36 | PROVIDERS: ATTEND Internal Medicine Nephrology | DX: Z12.31 Encounter for screening mammogram for malignant neoplasm of breast (principal) ==

== ENCOUNTER → 2022-09-21 | Outpatient (CLI) | payer MEDICARE, MEDICAID | END | disposition home or self-care (01) | LOC: RAD 11:39 | PROVIDERS: ATTEND Internal Medicine Nephrology | DX: M19.042 Primary osteoarthritis, left hand (principal) ==

== ENCOUNTER → 2023-12-04 | Outpatient (CLI) | payer OTHER, MEDICAID | END | disposition home or self-care (01) | LOC: RAD 14:27 | PROVIDERS: ATTEND Internal Medicine Nephrology | DX: M51.87 Other intervertebral disc disorders, lumbosacral region (principal) ==

== ENCOUNTER → 2024-07-01 | Outpatient (CLI) | payer OTHER, MEDICAID ==
[~2024-07-01] MED LIST changes: +'XANAX0.5 MG PO; +ATIVAN0.5 MG PO; +BUPROPION75 MG PO; +GLUCOTROL XL5 MG PO; -GLUCOTROL5 MG PO; +NITROGLYCERIN1 EAC3 T; +OMEPRAZOLE40 MG PO; +OYSTER SHELL 51 EAC5 PO; +VITAMIN D350 MC2 PO
[2024-07-01 13:25] LABS: HEMATOCRIT 39.3 % (37.0-47.0); MEAN CELL VOLUME 93.3 fl (81.0-99.0); MEAN CORPUSCULAR HGB 28.7 pg (27.0-31.0); MEAN CORPUSCULAR HGB CONC 30.8 g/dl (33.0-37.0); MEAN PLATELET VOLUME 10.9 fl (9.6-12.3); PLATELET COUNT AUTOMATED 173 10*3/uL (130-400); RED BLOOD COUNT 4.21 10*6/uL (4.10-5.10); RED CELL DISTRI WIDTH 14.5 % (0-14.5); WHITE BLOOD COUNT 4.6 10*3/uL (4.8-10.8)
[2024-07-01 13:28] LABS: MANUAL DIFF REFLEX YES
[2024-07-01 14:01] LABS: ALKALINE PHOSPHATASE 70 U/L (46-116); BUN 13 mg/dl (9-23); CHLORIDE 103 mmol/L (98-107); POTASSIUM 4.5 mmol/L (3.4-5.1); SGPT/ALT 9 U/L (5-49); TOTAL PROTEIN 6.2 gm/dL (6.0-8.0)
[2024-07-01 14:12] LABS: ATYPICAL LYMPHS 1 % (0-0); BASOPHILS 1 % (0-1); BURR CELLS FEW; PLATELET SUFFICIENCY NORMAL (NORMAL); TOTAL CELLS COUNTED 100 #CELLS
== END | disposition home or self-care (01) ==
LOC: LAB 12:06
PROVIDERS: ATTEND Internal Medicine Nephrology
DX: J20.8 Acute bronchitis due to other specified organisms (principal); E11.65 Type 2 diabetes mellitus with hyperglycemia

== ENCOUNTER → 2024-08-28 | Outpatient (CLI) | payer OTHER, MEDICAID | END | disposition home or self-care (01) | LOC: RAD 10:00 | PROVIDERS: ATTEND Internal Medicine Nephrology | DX: Z13.820 Encounter for screening for osteoporosis (principal); I73.9 Peripheral vascular disease, unspecified; M81.0 Age-related osteoporosis without current pathological fracture ==